=== PATIENT | female | born 1970 | race Caucasian/White ===

== ENCOUNTER 2021-02-17 09:05 | Emergency (ER) | payer SELFPAY ==
[~2021-02-17] VITALS: Ht 162.6 cm; Wt 121.1 kg
[2021-02-17 10:07] LABS: BUN/CREATININE RATIO 10 (0-10)
[2021-02-17 11:17] LABS: HEMOGLOBIN 12.4 gm/dl (12.3-15.3); RED BLOOD COUNT 5.2 M/UL (4.00-5.10); WHITE BLOOD COUNT 5.6 K/UL (4.5-11.0)
== END 2021-02-17 15:11 | disposition home or self-care (01) ==
LOC: ER1 09:05
PROVIDERS: Emergency Medicine
DX: U07.1 COVID-19 (principal); Z23 Encounter for immunization; F17.200 Nicotine dependence, unspecified, uncomplicated
CPT/HCPCS: 71045; 80053; 82550; 82553; 83874; 84484; 85025; 93005; 99285; M0243